=== PATIENT | male | born 2000 | race Hispanic/Latino ===

== ENCOUNTER 2019-12-03 09:43 | Emergency (ER) | payer BC ==
[2019-12-03] MEDS ORDERED: FLOXIN OTIC0.3 % AD (10:05)
[2019-12-03] MEDS ORDERED: ULTRAM50 M1 PO (10:05)
[2019-12-03] MEDS ORDERED: AMOXICILLIN875 MG PO (10:05)
[2019-12-03 10:32] VITALS: BP 145/77
== END 2019-12-03 10:39 | disposition home or self-care (01) | DRG 153 ==
LOC: ED 09:43
DX: H66.91 Otitis media, unspecified, right ear (principal)

== ENCOUNTER 2021-01-13 23:56 | Emergency (ER) | payer BC ==
[~2021-01-13] VITALS: Ht 180.3 cm; Wt 109.0 kg
[~2021-01-13 23:56] MED LIST: AMOXICILLIN875 MG PO; FLOXIN OTIC0.3 % AD; ULTRAM50 M1 PO
[2021-01-14] MEDS ORDERED: AMOXICILLIN500 MG PO (02:54)
[2021-01-14] MEDS ORDERED: CLARITIN10 M1 PO (02:54)
[2021-01-14 03:12] VITALS: BP 140/90
== END 2021-01-14 03:11 | disposition home or self-care (01) | DRG 153 ==
LOC: ED 23:56
DX: J02.9 Acute pharyngitis, unspecified (principal); Z20.822 Contact with and (suspected) exposure to COVID-19

== ENCOUNTER 2022-12-30 07:06 | Emergency (ER) | payer OTHER ==
[~2022-12-30] VITALS: Ht 182.9 cm; Wt 111.0 kg
[~2022-12-30 07:06] MED LIST changes: +AMOXICILLIN500 MG PO; +CLARITIN10 M1 PO
[2022-12-30 07:41] VITALS: BP 142/89
[2022-12-30 07:45] VITALS: BP 136/97
[2022-12-30] MEDS ORDERED: CIPRODEX1 ML OT (07:54)
[2022-12-30 08:00] VITALS: BP 144/94
== END 2022-12-30 08:15 | disposition home or self-care (01) | DRG 156 ==
LOC: ED 07:06
DX: H60.91 Unspecified otitis externa, right ear (principal); H60.92 Unspecified otitis externa, left ear; I10 Essential (primary) hypertension